=== PATIENT | female | born 2005 | race Caucasian/White ===

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

== ENCOUNTER 2023-05-27 13:27 | Emergency (ER) | payer OTHER, SELFPAY ==
--- NOTE | ~2023-05-27 | CT_ITS ---
EXAMINATION: CT brain wo con DATE: 05/27/2023 14:20 INDICATION: head injury . TECHNIQUE: Computed tomography (CT) of the head was performed without intravenous contrast. The mA wa s adjusted according to patient size. Iterative reconstruction technique was employed. The dose-lengt h product was 605.33 mGy-cm. COMPARISON: None. FINDINGS: No acute intracranial hemorrhage or extra-axial fluid collection. No hydrocephalus, mass, or herniation. No acute ischemic infarct. Unremarkable dural venous sinus attenuation. No acute osseous abnormality. Rounded subcutaneous opacity over the left frontal scalp near the verte x, has the appearance of a cyst rather than acute soft tissue injury. The aerated spaces are clear. IMPRESSION: No acute intracranial process. Reviewed, dictated and finalized at location K.
[2023-05-27 13:32] VITALS: BP 105/66; PULSE 86; RESP 18; TEMP 36.3; O2SAT 100
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
== END 2023-05-27 15:08 | disposition home or self-care (01) ==
PROVIDERS: Emergency Provider Nurse Practitioner Family; PCP Pediatrics
DX: S06.0X0A Concussion without loss of consciousness, initial encounter (principal); K21.00 Gastro-esophageal reflux disease with esophagitis, without bleeding; W22.8XXA Striking against or struck by other objects, initial encounter
CPT/HCPCS: 70450; 99284

== ENCOUNTER 2023-08-17 17:23 | Emergency (ER) | payer OTHER, SELFPAY ==
[2023-08-17 17:37] VITALS: BP 121/74; PULSE 79; RESP 16; TEMP 36.7; O2SAT 100
--- NOTE | 2023-08-17 18:11 | ED.URI ---
HPI - URI/Sore Throat General Chief Complaint: Upper Respiratory Infection Stated Complaint: sinuses clogged hard time catching breath Source: patient Mode of arrival: ambulatory Limitations: no limitations History of Present Illness HPI Narrative: 17-year-old female presented for complaint of sinus congestion and feeling heavy and tightness in the chest with taking deep breath. Onset 2 days. Denies Wheezing, cough, nausea, vomiting diarrhea, fevers or chills. Taking DayQuil and Flonase for symptoms. Pt had Covid over Thanksgiving, and her bf just had covid. Related Data Home Medications Medication Instructions Recorded Confirmed norethindrone 1 mg-ethinyl 1 tablet PO DAILY 07/28/19 01/09/22 estradiol 10 mcg (24)-iron 10 mcg(2) tablet (Lo Loestrin Fe) aripiprazole 2 mg tablet mg 08/17/23 08/17/23 lamotrigine 150 mg tablet mg 08/17/23 Allergies Allergy/AdvReac Type Severity Reaction Status Date / Time No Known Allergies Allergy Verified 08/17/23 17:43 Review of Systems Review of Systems: per HPI All systems reviewed & are unremarkable except as noted in HPI and below PMFSH Past Medical History Medical History ADHD (attention deficit hyperactivity disorder) Anxiety Depression Reflux esophagitis Surgical History Surgical History History of placement of ear tubes History of tonsillectomy and adenoidectomy Social History Social History Smoking status: Never smoker Substance use type: does not use Living arrangements: with family Occupation/Education: student Comments At time of signature, I have reviewed and agree with nursing past medical, surgical, social and family history unless otherwise noted. Please see nursing chart for further information. There is no relevant family history pertinent to the presenting complaint Exam Narrative: GENERAL: Well-appearing EYES: EOMI. No redness or drainage. Conjunctivae normal. ENT: Mucous membranes pink and moist Mild rhinorrhea. TMs normal bilaterally. Throat normal. Uvula midline. NECK: Normal AROM. CHEST: No respiratory distress. lungs clear to all pacheco. HEART: Regular rate and rhythm. No murmur appreciated. ABDOMEN: Soft, nontender, nondistended, normal active bowel sounds. EXTREMITIES: Normal range of motion. No edema. SKIN: Warm, dry, no rash. Capillary refill normal. Normal skin turgor. NEURO: Alert and oriented x3. Gait steady. PSYCH: Normal affect. Course Course Emergency Course: Patient is aware of diagnosis, understands and agrees to treatment plan. Anticipatory guidance given. Patient agrees to follow-up as directed and is aware of reasons to seek care at the emergency department. Portions of this record may have been created with voice recognition software Level of Care: Express Care Visit Vital Signs Vital signs: Vital Signs Temperature 98.1 F 08/17/23 17:37 Pulse Rate 79 08/17/23 17:37 Respiratory Rate 16 08/17/23 17:37 Blood Pressure 121/74 08/17/23 17:37 Pulse Oximetry 100 08/17/23 17:37 Oxygen Delivery Room Air 08/17/23 17:37 Temperature 98.1 F 08/17/23 17:37 Pulse Rate 79 08/17/23 17:37 Respiratory Rate 16 08/17/23 17:37 Blood Pressure 121/74 08/17/23 17:37 Pulse Oximetry 100 08/17/23 17:37 Oxygen Delivery Room Air 08/17/23 17:37 MDM - URI/Sore Throat MDM Narrative Medical decision making narrative: Positive flu. Negative COVID. Results reviewed with patient. Discussed physical exam findings. Advised supportive measures and signs/symptoms to go to the ER. Pt is appropriate for outpt treatment and f/u. Differential Diagnosis Differential diagnosis: Likely upper respiratory infection, otitis media, sinusitis, viral infection, bronchitis, influenza and pharyngitis Lab D
== END 2023-08-17 18:22 | disposition home or self-care (01) ==
PROVIDERS: Emergency Provider Nurse Practitioner Family; PCP Pediatrics
DX: B34.9 Viral infection, unspecified (principal); Z20.822 Contact with and (suspected) exposure to COVID-19; K21.00 Gastro-esophageal reflux disease with esophagitis, without bleeding; Z86.16 Personal history of COVID-19
CPT/HCPCS: 87426; 87804; 99213; C9803; G0463

== ENCOUNTER → 2023-08-27 11:05 | Outpatient (CLI) | payer OTHER, SELFPAY ==
--- NOTE | ~2023-08-27 | XR_ITS ---
XR finger 1st RT min 2V DATE: 08/27/2023 11:20 INDICATION: Right thumb injury TECHNIQUE: 3 views COMPARISON: None FINDINGS: No fracture or dislocation, periosteal reaction or bone destruction, erosive change, subcut aneous emphysema or abnormal soft tissue calcification. IMPRESSION: Negative Reviewed, dictated and finalized at location B. ET INSPECTOR IMPRESSION: Negative
== END ==
PROVIDERS: PCP Pediatrics; Visit Provider Pediatrics
DX: S69.91XA Unspecified injury of right wrist, hand and finger(s), initial encounter (principal); T14.90XA Injury, unspecified, initial encounter
CPT/HCPCS: 73140

== ENCOUNTER 2024-06-19 11:29 | Emergency (ER) | payer OTHER, SELFPAY ==
--- NOTE | ~2024-06-19 | XR_ITS ---
EXAMINATION: XR ribs RT 2V w CXR 2V DATE: 06/19/2024 13:46 INDICATION: Right-sided chest pain TECHNIQUE: PA and lateral views of the chest and 3 views of the right ribs were obtained. COMPARISON: None FINDINGS: No rib fractures identified. No pneumothorax. No focal infiltrates, pleural effusion or pulmonary johnnie ma. Cardiomediastinal silhouette is normal. Mild 3 compartment scoliosis of the thoracic and lumbar spine with mild lower thoracic levocurvature and mild dextro curvature in the upper thoracic spine at the thoracolumbar junction. IMPRESSION: 1. No rib fracture or acute cardiopulmonary disease. Reviewed, dictated and finalized at location A.
[2024-06-19 11:53] VITALS: BP 115/67; PULSE 63; RESP 16; TEMP 36.4; O2SAT 100
--- NOTE | 2024-06-19 12:45 | ED_ITS ---
HPI - General Adult General Chief complaint: Unspecified <Maribell Waterman PA-C - Last Filed: 06/20/24 11:10> Stated complaint: r rib pain <Maribell Waterman PA-C - Last Filed: 06/20/24 11:10> Time Seen by Provider: 06/19/24 12:45 <Maribell Waterman PA-C - Last Filed: 06/20/24 11:10> Focused HPI: This is a 18 year old female that presents to the ER for right sided chest pain. Ongoing since yesterday. Worse with breathing. She has had a cough. Denies fevers or shortness of breath. GENERAL: Well-appearing, well-nourished, and in no acute distress. HEAD: Normocephalic, atraumatic. CHEST: Clear to auscultation. ?No respiratory distress. HEART: Regular rate and rhythm.? NEURO: ?Alert and oriented x3. Patient screened in triage and initial orders placed.? ?Additional care and disposition to be based upon?diagnostic testing and treatment. <Maribell Waterman PA-C - Last Filed: 06/20/24 11:10> History of Present Illness HPI narrative: 18-year-old female presenting with right-sided chest pain. States that for the last few days she has had a dry cough. No fevers or chills. Yesterday developed right lower chest pain that she states is right behind her breast. Worse with taking a big breath. Movement also seems to make it worse. No leg swelling or shortness of breath. No abdominal pain or nausea or vomiting. No further complaints. <Sofie Ceja MD - Last Filed: 06/23/24 16:50> Related Data Home medications: Home Medications Medication Instructions Recorded Confirmed norethindrone 1 mg-ethinyl 1 tablet PO DAILY 07/28/19 01/09/22 estradiol 10 mcg (24)-iron 10 mcg(2) tablet (Lo Loestrin Fe) aripiprazole 2 mg tablet mg 08/17/23 08/17/23 lamotrigine 150 mg tablet mg 08/17/23 <Maribell Waterman PA-C - Last Filed: 06/20/24 11:10> Allergies/adverse reactions: Allergies Allergy/AdvReac Type Severity Reaction Status Date / Time No Known Allergies Allergy Verified 08/17/23 17:43 <Maribell Waterman PA-C - Last Filed: 06/20/24 11:10> Review of Systems Review of Systems: All systems reviewed & are unremarkable except as noted in HPI and below <Sofie Ceja MD - Last Filed: 06/23/24 16:50> [facility], [facility] Past Medical History Medical History: Medical History ADHD (attention deficit hyperactivity disorder) Anxiety Depression Reflux esophagitis <Maribell Waterman PA-C - Last Filed: 06/20/24 11:10> Surgical History Surgical History: Surgical History History of placement of ear tubes History of tonsillectomy and adenoidectomy <Maribell Waterman PA-C - Last Filed: 06/20/24 11:10> Social History Social History: Social History Smoking status: Never smoker Substance use type: does not use Living arrangements: with family Occupation/Education: student <Maribell Waterman PA-C - Last Filed: 06/20/24 11:10> Exam Narrative: GENERAL: Well-appearing, In no acute distress, pleasant cooperative HEAD: Normocephalic, atraumatic. EYES: PERRLA and EOMI. ENT: grossly unremarkable NECK: Supple. CHEST: Clear to auscultation. No respiratory distress. +chest wall tenderness R chest HEART: Regular rate and rhythm ABDOMEN: Soft, nontender, nondistended EXTREMITIES: Normal range of motion. No edema. SKIN: Warm, dry, no rash. NEURO: Alert and oriented x3. PSYCH: Normal mood and affect. <Sofie Ceja MD - Last Filed: 06/23/24 16:50> Course Vital Signs Vital signs: Vital Signs Temperature 97.6 F 06/19/24 11:53 Pulse Rate 63 06/19/24 11:53 Respiratory Rate 16 06/19/24 11:53 Blood Pressure 115/67 06/19/24 11:53 Pulse Oximetry 100 10/31/24 11:53 Temperature 97.8 F 06/19/24 19:18 Pulse Rate 84 06/19/24 19:18 Respiratory Rate 16 06/19/24 19:18 Blood Pressure 122/72 06/19/24 19:18 Pulse Oximetry 98 06/19/24 19:18 <Maribell Waterman PA-C - Last Filed: 06/20/24 11:10> Vital Signs Temperature 97.6 F 06/19/24 11:53 Pulse Rate 63 06/19/24 11:53 Respiratory Rate 16 06/19/24 11:53 Blood Pressure 115/67 06/19/24 11:53 Pulse Oximetry 100 06/19/24 11:53 Temperature 97.8 F 06/19/24 19:18 Pulse Rate 84 06/19/24 19:18 Respiratory Rate 16 06/19/24 19:18 Blood Pressure 122/72 06/19/24 19:18 Pulse Oximetry 98 06/19/24 19:18 <Sofie Ceja MD - Last Filed: 06/23/24 16:50> Medical Decision Making MDM Narrative Medical decision making narrative: 18-year-old female presenting with right-sided chest pain. Vitals are within normal limits. Exam remarkable for the above. She does have reproducible chest pain right anterior chest. EKG per my interpretation shows sinus bradycardia, no ST elevations or depressions. Chest x-ray without acute abnormalities. Blood work is unremarkable. Discussed the reassuring workup with the patient and her family. Feel she is safe for outpatient management. Recommend PCP follow-up. Discussed appropriate return precautions. Discharged in stable condition. <Sofie Ceja MD - Last Filed: 06/23/24 16:50> Differential Diagnosis Differential Diagnosis: Chest pain, musculoskeletal pain, pleuritis, viral URI <Sofie Ceja MD - Last Filed: 06/23/24 16:50> Medical Records Medical records reviewed: Yes I reviewed the external patient's medical records. <Sofie Ceja MD - Last Filed: 06/23/24 16:50> Vital Signs Vital Signs: Vital Signs Temperature 97.6 F 06/19/24 11:53 Pulse Rate 63 06/19/24 11:53 Respiratory Rate 16 06/19/24 11:53 Blood Pressure 115/67 06/19/24 11:53 Pulse Oximetry 100 06/19/24 11:53 Temperature 97.8 F 06/19/24 19:18 Pulse Rate 84 06/19/24 19:18 Respiratory Rate 16 06/19/24 19:18 Blood Pressure 122/72 06/19/24 19:18 Pulse Oximetry 98 06/19/24 19:18 <Maribell Waterman PA-C - Last Filed: 06/20/24 11:10> Vital Signs Temperature 97.6 F 06/19/24 11:53 Pulse Rate 63 06/19/24 11:53 Respiratory Rate 16 06/19/24 11:53 Blood Pressure 115/67 06/19/24 11:53 Pulse Oximetry 100 06/19/24 11:53 Temperature 97.8 F 06/19/24 19:18 Pulse Rate 84 06/19/24 19:18 Respiratory Rate 16 06/19/24 19:18 Blood Pressure 122/72 06/19/24 19:18 Pulse Oximetry 98 06/19/24 19:18 <Sofie Ceja MD - Last Filed: 06/23/24 16:50> Lab Data Result diagrams: 06/19/24 14:58 06/19/24 14:58 <Maribell Waterman PA-C - Last Filed: 06/20/24 11:10> Labs: Lab Results 06/19/24 Range/Units 14:58 WBC 9.3 (4.5-10.0) K/mm3 RBC 4.41 (4.2-5.4) M/mm3 Hgb 13.0 (12.0-15.0) g/dL Hct 39.2 (37.0-47.0) % MCV 88.9 (80-100) fl MCH 29.5 (26-34) pg MCHC 33.2 (32-36) g/dl RDW 12.9 (11.5-14.5) % Plt Count 290 (150-375) k/mm3 MPV 10.5 H (7.4-10.4) fl Immature Gran % (Auto) 0.3 (0-0.5) % Neut % (Auto) 67.4 (45.5-73.1) % Lymph % (Auto) 20.4 (18.3-44.2) % Dent % (Auto) 8.4 (2.6-8.5) % Eos % (Auto) 2.7 (0-4.4) % Baso % (Auto) 0.8 (0.2-1.2) % Lymph # (Auto) 1.90 (0.9-3.2) K/mm3 Dent # (Auto) 0.8 H (0.1-0.6) K/mm3 Eos # (Auto) 0.3 (0-0.3) K/mm3 Baso # (Auto) 0.1 (0.0-0.1) K/mm3 Abs Immat Gran (auto) 0.03 (0.00-0.031) K/mm3 Absolute Neuts (auto) 6.3 (1.3-6.7) K/mm3 Absolute Nucleated RBC 0.000 (0.0-0.012) K/mm3 Nucleated RBC % 0.0 (0.0-0.2) % Sodium 142 (137-145) mmol/L Potassium 3.9 (3.4-5.0) mmol/L Chloride 106 (98-107) mmol/L Carbon Dioxide 26 (22-30) mmol/L Anion Gap 10 (4-12) mmol/L BUN 9 (7-17) mg/dL Creatinine 0.70 (0.7-1.0) mg/dL Estim Creat Clear Calc Not Reportable Estimated GFR > 60 (59 - ) Glucose 87 (65-110) mg/dL Calcium 9.3 (8.4-10.2) mg/dL Total Bilirubin 0.5 (0.2-1.3) mg/dL AST 22 (14-36) U/L ALT 16 (6-35) U/L Alkaline Phosphatase 55 (38-126) U/L Troponin I < 0.012 (0.000-0.034) ng/mL Total Protein 8.0 (6.3-8.2) g/dL Albumin 4.4 (3.5-5.1) g/dL <Maribell Waterman PA-C - Last Filed: 06/20/24 11:10> Lab Results 06/19/24 Range/Units 14:58 WBC 9.3 (4.5-10.0) K/mm3 RBC 4.41 (4.2-5.4) M/mm3 Hgb 13.0 (12.0-15.0) g/dL Hct 39.2 (37.0-47.0) % MCV 88.9 (80-100) fl MCH 29.5 (26-34) pg MCHC 33.2 (32-36) g/dl RDW 12.9 (11.5-14.5) % Plt Count 290 (150-375) k/mm3 MPV 10.5 H (7.4-10.4) fl Immature Gran % (Auto) 0.3 (0-0.5) % Neut % (Auto) 67.4 (45.5-73.1) % Lymph % (Auto) 20.4 (18.3-44.2) % Dent % (Auto) 8.4 (2.6-8.5) % Eos % (Auto) 2.7 (0-4.4) % Baso % (Auto) 0.8 (0.2-1.2) % Lymph # (Auto) 1.90 (0.9-3.2) K/mm3 Dent # (Auto) 0.8 H (0.1-0.6) K/mm3 Eos # (Auto) 0.3 (0-0.3) K/mm3 Baso # (Auto) 0.1 (0.0-0.1) K/mm3 Abs Immat Gran (auto) 0.03 (0.00-0.031) K/mm3 Absolute Neuts (auto) 6.3 (1.3-6.7) K/mm3 Absolute Nucleated RBC 0.000 (0.0-0.012) K/mm3 Nucleated RBC % 0.0 (0.0-0.2) % Sodium 142 (137-145) mmol/L Potassium 3.9 (3.4-5.0) mmol/L Chloride 106 (98-107) mmol/L Carbon Dioxide 26 (22-30) mmol/L Anion Gap 10 (4-12) mmol/L BUN 9 (7-17) mg/dL Creatinine 0.70 (0.7-1.0) mg/dL Estim Creat Clear Calc Not Reportable Estimated GFR > 60 (59 - ) Glucose 87 (65-110) mg/dL Calcium 9.3 (8.4-10.2) mg/dL Total Bilirubin 0.5 (0.2-1.3) mg/dL AST 22 (14-36) U/L ALT 16 (6-35) U/L Alkaline Phosphatase 55 (38-126) U/L Troponin I < 0.012 (0.000-0.034) ng/mL Total Protein 8.0 (6.3-8.2) g/dL Albumin 4.4 (3.5-5.1) g/dL <Sofie Ceja MD - Last Filed: 06/23/24 16:50> Imaging Data Radiologist's impression: ITS Impressions Ribs w/Chest X-Ray 06/19/24 14:01 IMPRESSION: 1. No rib fracture or acute cardiopulmonary disease. <Sofie Ceja MD - Last Filed: 06/23/24 16:50> Critical Care Time Critical Care Time Critical Care Time: No <Sofie Ceja MD - Last Filed: 06/23/24 16:50> Discharge Plan Discharge Clinical Impression: Right-sided chest pain <Maribell Waterman PA-C - Last Filed: 06/20/24 11:10> Patient Disposition: Home, Self-Care <Maribell Waterman PA-C - Last Filed: 06/20/24 11:10> Condition: Stable <Maribell Waterman PA-C - Last Filed: 06/20/24 11:10> Instructions: Antibiotic Form, Chest Pain (ED) <Maribell Waterman PA-C - Last Filed: 06/20/24 11:10> Additional Instructions: Your EKG, chest x-ray, blood work today are normal. Please use Tylenol and ibuprofen for pain control. Alternate between the two so that you do not over do either one. You may also purchase lidocaine patches [id number] which can be placed in the area that hurts. Please follow-up closely with your PCP. If your symptoms worsen or other concerning symptoms arise, please return to the ER. <Maribell Waterman PA-C - Last Filed: 06/20/24 11:10> Prescriptions: No Action Lo Loestrin Fe 1 mg-10 mcg (24)/10 mcg (2) tablet 1 tablet PO DAILY lamotrigine 150 mg tablet aripiprazole 2 mg tablet benzonatate 200 mg capsule 200 mg PO TID PRN (Reason: cough) Qty: 20 0RF albuterol sulfate 90 mcg/actuation HFA aerosol inhaler 2 inh inhalation QID PRN (Reason: shortness of breath or wheezing) Qty: 8.5 0RF <Maribell Waterman PA-C - Last Filed: 06/20/24 11:10> Follow-up/Referrals: PHYSICIAN NOT ON STAFF,NONSTAFF [Non-Staff] - <Maribell Waterman PA-C - Last Filed: 06/20/24 11:10>
--- NOTE | 2024-06-19 12:51 | ECG_ITS ---
Test Date: 2024-06-19 17:36:23 Measurements Intervals [place] Rate: 55 P: 31 ID: [id number] QRS: 37 QRSD: 85 T: 34 QT: 412 QTc: 397 Interpretive Statements SINUS BRADYCARDIA POSSIBLE LEFT ATRIAL ENLARGEMENT BASELINE ARTIFACT- I, II, III, AVR, AVL, AVF, V1-V6 BORDERLINE ECG No previous ECG available for comparison Electronically Signed On 06-20-2024 06:31:42 CDT by Holger Barrientos D.O.
[2024-06-19 15:09] LABS: Basophils Absolute Auto 0.1 K/mm3 (0.0-0.1); Basophils Percent Auto 0.8 % (0.2-1.2); Eosinophils Absolute Auto 0.3 K/mm3 (0-0.3); Eosinophils Percent Auto 2.7 % (0-4.4); Hematocrit 39.2 % (37.0-47.0); Immature Granulocyte Absolute 0.03 K/mm3 (0.00-0.031); Immature Granulocyte Percent A 0.3 % (0-0.5); Lymphocytes Percent Auto 20.4 % (18.3-44.2); Mean Corpuscular HGB Conc 33.2 g/dl (32-36); Mean Corpuscular Hemoglobin 29.5 pg (26-34); Mean Corpuscular Volume 88.9 fl (80-100); Mean Platelet Volume 10.5 fl (7.4-10.4); Monocytes Absolute Auto 0.8 K/mm3 (0.1-0.6); Monocytes Percent Auto 8.4 % (2.6-8.5); Neutrophils Absolute Auto 6.3 K/mm3 (1.3-6.7); Neutrophils Percent Auto 67.4 % (45.5-73.1); Platelet Count Result 290 k/mm3 (150-375); Red Blood Count 4.41 M/mm3 (4.2-5.4); Red Cell Distribution Width 12.9 % (11.5-14.5); White Blood Count 9.3 K/mm3 (4.5-10.0)
[2024-06-19 15:20] LABS: Alanine Aminotransferase 16 U/L (6-35); Albumin Level 4.4 g/dL (3.5-5.1); Alkaline Phosphatase 55 U/L (38-126); Anion Gap 10 mmol/L (4-12); Aspartate Amino Transferase 22 U/L (14-36); Bilirubin,Total 0.5 mg/dL (0.2-1.3); Blood Urea Nitrogen 9 mg/dL (7-17); Calcium 9.3 mg/dL (8.4-10.2); Carbon Dioxide 26 mmol/L (22-30); Chloride 106 mmol/L (98-107); Estimated Glomerular Filt Rate > 60; Glucose 87 mg/dL (65-110); Potassium 3.9 mmol/L (3.4-5.0); Sodium 142 mmol/L (137-145)
[2024-06-19 15:31] LABS: Troponin I < 0.012 ng/mL (0.000-0.034)
[2024-06-19 15:40] VITALS: BP 122/68; PULSE 74; RESP 14; O2SAT 99
[2024-06-19] MEDS: IBUPROFEN 600 MG TABLET PO (16:17)
[2024-06-19 19:18] VITALS: BP 122/72; PULSE 84; RESP 16; TEMP 36.6; O2SAT 98
== END 2024-06-19 19:19 | disposition home or self-care (01) ==
PROVIDERS: Physician Assistant; Emergency Provider Emergency Medicine; PCP Pediatrics
DX: R07.9 Chest pain, unspecified (principal); F90.9 Attention-deficit hyperactivity disorder, unspecified type; F41.8 Other specified anxiety disorders
CPT/HCPCS: 36415; 71046; 71100; 80053; 84484; 85025; 93005; 99284; A9270